=== PATIENT | female | born 1965 | race Caucasian/White ===

== ENCOUNTER 2023-07-05 18:59 | Emergency (ER) | payer MEDICARE, MEDICAID, SELFPAY ==
--- NOTE | 2023-07-05 | ECG_ITS ---
Test Reason : SOB Blood Pressure : / mmHG Vent. Rate : 070 BPM Atrial Rate : 070 BPM P-R Int : 136 ms QRS Dur : 086 ms QT Int : 470 ms P-R-T Axes : -12 087 083 degrees QTc Int : 507 ms Normal sinus rhythm Prolonged QT Abnormal ECG No previous ECGs available Referred By: Carlitos Willingham Electronically Signed By:JAIME CHANDLER
--- NOTE | ~2023-07-05 | XR_ITS ---
EXAMINATION: XR CHEST CLINICAL INFORMATION: Shortness of breath COMPARISON: None available. TECHNIQUE: 2 views of the chest were obtained. FINDINGS: There is mild cardiomegaly. Mild upper zone distribution but no evidence of gross pulmonary edema. No pleural effusions are seen. A tunneled right IJ hemodialysis catheter is present with its tip in the right atrium. Stents are present in the left upper arm with surgical clips near the antecubital fossa. Calcifications seen in the region of the brachial artery. XR/XR chest 2V IMPRESSION: Cardiomegaly with mild upper zone distribution but no evidence of gross pulmonary edema.
[2023-07-05 19:14] VITALS: BP 80/60; PULSE 82; O2SAT 97
--- NOTE | 2023-07-05 19:16 | ED.GENADULT ---
HPI - General Adult General Chief complaint: Dyspnea Stated complaint: from [place] HTN, dizzy, lethargic Time Seen by Provider: 07/05/23 19:15 History of Present Illness HPI narrative: 57 y/o F patient; PMH ESRD on dialysis s/p bilateral kidney removal, cardiac arrest 2/2 to hypoxia believed to be related to noncompliance with CPAP (underlying MEETA), HTN; presents from acute rehab with report of low blood pressure. The patient states she is currently attempting to get on the transplant list for kidney. She was on 7 blood pressure medications in Mar 2023. Following her kidney removal surgery, she is currently on 4 blood pressure medications. Today she had a normal morning other than some mild upper congestion for which she took Mucinex. This afternoon before her PT session her blood pressure was in 120mmHg systolic. After she took her blood pressure medications she developed lightheadedness and dizziness. She had her blood pressure taken and was found to be hypotensive. She denies any falls or trauma. She denies: shortness of breath (contrary to triage note), chest pain, nausea/vomiting, diarrhea, syncope. Incidentally she also noticed a rash to her right lower abdomen a few days ago which is intermittently causing her discomfort. Related Data Previous Rx's Medication Instructions Recorded acyclovir 200 mg capsule 200 mg PO BID 5 days #10 caps 07/05/23 acyclovir 400 mg tablet 400 mg PO DAILY #2 tabs 07/05/23 Allergies Allergy/AdvReac Type Severity Reaction Status Date / Time No Known Allergies Allergy Verified 07/05/23 19:24 Review of Systems Review of Systems: Yes all other systems are reviewed and are negative [facility] Past Medical History Attestation statement: The following information was validated with the patient. Source: old records reviewed Social History Social History Smoked in Last 30 Days: No Advance Directives: No Advance Directives Information Provided: No Patient : No Physical Exam ED Vital Signs: Vital Signs - 24 hr 07/05/23 19:17 07/05/23 19:50 Temperature 97.8 F 97.8 F Pulse Rate 78 78 Respiratory Rate 16 16 Blood Pressure 90/56 L 90/56 L Pulse Oximetry 94 94 Oxygen Delivery Method Room Air Room Air BMI result Body Mass Index 19.4 Patient is afebrile with low normal blood pressure (MAP 67). Const General: cooperative [facility] Head: Yes atraumatic Eyes General: appearance normal, both eyes and all related structures Neck Neck: Yes normal visual inspection, Yes full ROM, Yes supple and No tender Chest Chest palpation & inspection: normal inspection of the chest and normal palpation of entire chest wall Resp Effort & Inspection: normal respiratory effort, able to speak in complete sentences, no cough and no respiratory distress Auscultation: clear to auscultation bilaterally Cardio Rate: regular rate Rhythm: regular rhythm Peripheral pulses: Peripheral pulses 2+ throughout GI Other: Right lower abdominal vesicular rash consistent with likely varicella zoster Inspection: No Abdominal wall edema and No distended Palpation (GI): Soft to palpation, not firm, nontender, no guarding and not rigid Auscultation: normal bowel sounds Skin Other: Course Course Course Narrative: Patient is afebrile with low normal BP (MAP 67). Suspect likely iatrogenic 2/2 to hypertensive medications but will assess for signs of infection. Reevaluation(s) Reevaluation #1: Labs reviewed: No leukocytosis Baseline anemia (Hgb 8.1) Baseline thrombocytopenia (118). Hyperphosphatemia 5.7 Troponin 18.1 will plan to repeat. LA 1. COVID/Flu/RSV negative. Will treat with dialysis doses Acyclovir with loading 400mg PO now. Plan: Transition to next physician pending repeat troponin and disposition Condition: Stable Medications Administered Discontinued Medications Generic Name Dose Route Start Last Admin Trade Name Freq PRN Reason Stop Dose Admin Acyclovir 400 mg 07/05/23 20:33 07/05/23 20:58 Acyclovir 200 Mg Capsule PO 07/05/23 20:34 400 mg ONCE ONE Administration Medical Decision Making Lab Data 07/05/23 19:56 07/05/23 19:56 Labs: Lab Results 07/05/23 07/05/23 07/05/23 Range/Units 19:56 19:59 20:29 WBC 6.2 (4.8-10.8) X10*3/uL RBC 2.62 L (4.20-5.50) X10*6/uL Hgb 8.1 L (12.0-16.0) g/dl Hct 24.6 L (37.0-47.0) % MCV 93.9 (80.0-98.0) fL MCH 30.9 (27.0-33.0) pg MCHC 32.9 (31.0-35.0) g/dl RDW 14.3 (11.0-16.0) % Plt Count 118 L (160-400) X10*3/uL MPV 10.4 (9.4-12.3) fL Immature Gran % (Auto) 0.6 H (0.0-0.4) % Neut % (Auto) 67.7 (45-73) % Lymph % (Auto) 20.0 (20-40) % [place] % (Auto) 8.3 (2-11) % Eos % (Auto) 2.8 (0-4) % Baso % (Auto) 0.6 (0-2) % Lymph # (Auto) 1.2 (1.2-4.9) X10*3/uL [place] # (Auto) 0.5 (0.1-1.2) X10*3/uL Eos # (Auto) 0.2 (0.0-0.4) X10*3/uL Baso # (Auto) 0.0 (0.0-0.2) X10*3/uL Abs Immat Gran (auto) 0.04 H (0.00-0.03) X10*3/uL Absolute Neuts (auto) 4.2 (2.0-8.3) x10*3/uL Absolute Nucleated RBC 0.000 (0.0-0.012) X10*3/uL Nucleated RBC % (auto) 0.0 (0.0-0.2) /100WBC VBG pH 7.61 H* (7.32-7.43) VBG pCO2 29 mmHg VBG pO2 70 mmHg VBG HCO3 30 H (22-26) mmol/L VBG O2 Saturation 94.0 % VBG Base Excess 9.1 mmol/L Sodium 138 (135-145) mmol/L Potassium 4.7 (3.3-5.1) mmol/L Chloride 99 (96-108) mmol/L Carbon Dioxide 25 (22-29) mmol/L Anion Gap 19 (12-20) BUN 33 H (9-16) mg/dL Creatinine 5.16 H* (0.5-1.4) mg/dL Estim Creat Clear Calc 9.4 Estimated GFR 9 Random Glucose 106 (60-115) mg/dL Lactic Acid 1.0 (0.5-2.0) mmol/L Calcium 9.8 D (8.4-10.2) mg/dL Phosphorus 5.7 H (2.7-4.5) mg/dL Magnesium 2.1 (1.6-2.6) mg/dL Total Bilirubin 0.5 (0.0-1.0) mg/dL AST 17 (5-31) U/L ALT 14 (0-31) U/L Alkaline Phosphatase 78 (39-117) U/L Troponin I High Sens 18.1 H (<3.5-17.0) ng/L Total Protein 6.4 L (6.5-8.0) g/dL Albumin 3.5 (3.5-5.0) g/dL Lipase 34 (8-78) U/L Influenza Type A (PCR) NEGATIVE (Negative) Influenza Type B (PCR) NEGATIVE (Negative) RSV RNA Qual (PCR) NEGATIVE (Negative) SARS-CoV-2 RNA (RT-PCR) NEGATIVE (Negative) Discharge Plan Discharge Clinical Impression: Shingles, Blood pressure abnormally low Patient Disposition: Still a Patient Instructions: Shingles (ED) Additional Instructions: As we discussed, you were seen today for a rash and lower than normal blood pressure. Your exam and labs did not show an obvious infection, it is possible your lower than normal blood pressure is due to your blood pressure medications. Recommend you discuss a dose adjustment with your PCP. It is likely that you have a shingles rash to your abdomen. We started you on Acyclovir to help treat this rash. Take 200mg twice a day for 5 days. Then take 400mg immediately after dialysis sessions (Tuesday and Tuesday) - so those days take 3 pills total in the day. This prescription was sent to the [facility] at [address] [place] [address]. Return to the ED for: Any fever Passing out Chest pain Difficulty breathing Prescriptions: New acyclovir 200 mg capsule 200 mg PO BID 5 Days Qty: 10 0RF acyclovir 400 mg tablet 400 mg PO DAILY Qty: 2 0RF
[2023-07-05 19:17] VITALS: BP 90/56; PULSE 78; RESP 16; TEMP 36.6; O2SAT 94; BMI 19.4
[2023-07-05 19:50] VITALS: BP 90/56; PULSE 78; RESP 16; TEMP 36.6; O2SAT 94
--- NOTE | 2023-07-05 19:52 | PC.NURSE ---
Pt ca&ox4, no signs of acute distress. Pt reports sob, dizziness, and generally not feeling well and a low b/p of 80/60 with an onset of 12pm. Pt denies n/v, chest pain and pain at this time. Pt sat 94 on room air. Pt b/p 90/56 reported to T[facility]. Line attempted, chargeback analyst to try for a line. EKG completed. Pt placed on bedside monitor. Plan of care ongoing.
[2023-07-05 20:01] LABS: MANUAL DIFF FLAG NO
[2023-07-05 20:06] LABS: Basophils Percent Auto 0.6 % (0-2); Eosinophils Absolute Auto 0.2 X10*3/uL (0.0-0.4); Eosinophils Percent Auto 2.8 % (0-4); Hematocrit 24.6 % (37.0-47.0); Hemoglobin 8.1 g/dl (12.0-16.0); Imm Gran Abs Auto 0.04 X10*3/uL (0.00-0.03); Imm Gran Pct Auto 0.6 % (0.0-0.4); Lymphocytes Absolute Auto 1.2 X10*3/uL (1.2-4.9); Mean Corpuscular HGB Conc 32.9 g/dl (31.0-35.0); Mean Corpuscular Hemoglobin 30.9 pg (27.0-33.0); Mean Corpuscular Volume 93.9 fL (80.0-98.0); Mean Platelet Volume 10.4 fL (9.4-12.3); Monocytes Absolute Auto 0.5 X10*3/uL (0.1-1.2); Monocytes Percent Auto 8.3 % (2-11); Neutrophils Absolute Auto 4.2 x10*3/uL (2.0-8.3); Neutrophils Percent Auto 67.7 % (45-73); Platelet Count 118 X10*3/uL (160-400); Red Blood Count 2.62 X10*6/uL (4.20-5.50); Red Cell Distribution Width 14.3 % (11.0-16.0); White Blood Count 6.2 X10*3/uL (4.8-10.8)
[2023-07-05 20:12] LABS: VBG Base Excess 9.1 mmol/L; VBG HCO3 30 mmol/L (22-26); VBG pCO2 29 mmHg; VBG pH 7.61 (7.32-7.43); VBG pO2 70 mmHg
[2023-07-05 20:17] LABS: Venous Blood Gas Refer to POC result
[2023-07-05 20:21] LABS: Alanine Aminotransferase 14 U/L (0-31); Albumin Level 3.5 g/dL (3.5-5.0); Alkaline Phosphatase 78 U/L (39-117); Anion Gap 19 (12-20); Aspartate Amino Transferase 17 U/L (5-31); Bilirubin Total 0.5 mg/dL (0.0-1.0); Blood Urea Nitrogen 33 mg/dL (9-16); Calcium 9.8 mg/dL (8.4-10.2); Carbon Dioxide 25 mmol/L (22-29); Chloride 99 mmol/L (96-108); Creatinine Clr Calc Pharmacy 9.4; Estimated Glomerular Filt Rate 9; Glucose Random 106 mg/dL (60-115); Lipase 34 U/L (8-78); Magnesium 2.1 mg/dL (1.6-2.6); Phosphorus 5.7 mg/dL (2.7-4.5); Potassium 4.7 mmol/L (3.3-5.1); Sodium 138 mmol/L (135-145); Total Protein 6.4 g/dL (6.5-8.0)
[2023-07-05 20:25] LABS: Troponin-I High Sensitivity 18.1 ng/L (<3.5-17.0)
[2023-07-05 20:44] LABS: Influenza A PCR NEGATIVE (Negative); Influenza B PCR NEGATIVE (Negative); Resp Syncy Virus RNA Qual PCR NEGATIVE (Negative); SARS COV2 PCR INHOUSE NEGATIVE (Negative)
[2023-07-05] MEDS: Acyclovir 200 MG CAPSULE 400 MG PO (20:58)
--- NOTE | 2023-07-05 20:59 | PC.NURSE ---
Pt ca&ox4, no signs of distress. Pt resting in bed quietly Pt medicated per mar. Plan of care ongoing.
--- NOTE | 2023-07-05 21:50 | PC.NURSE ---
Pt sat @ 86, placed on 2L ns. plan of care ongoing.
[2023-07-05 22:00] VITALS: BP 128/72; PULSE 65; RESP 13; TEMP 36.9; O2SAT 94
[2023-07-05 23:49] VITALS: BP 160/88; PULSE 68; RESP 18; TEMP 36.7; O2SAT 90
[2023-07-06 00:14] LABS: Troponin-I High Sensitivity 20.6 ng/L (<3.5-17.0)
[2023-07-06 00:25] VITALS: BP 154/89; PULSE 75; RESP 12; O2SAT 94
--- NOTE | 2023-07-06 01:09 | PC.NURSE ---
This RN called Abhay Abarca and report given to GERMANIA Marshall. Joanna requesting paper scrips for meds.
[2023-07-06 01:12] VITALS: BP 154/89; PULSE 75; RESP 12; TEMP 37; O2SAT 94
== END 2023-07-06 02:25 | disposition home or self-care (01) ==
PROVIDERS: Emergency Medicine; Internal Medicine; Emergency Provider Emergency Medicine Emergency Medical Services; PCP Internal Medicine Nephrology
DX: B02.8 Zoster with other complications (principal); I95.9 Hypotension, unspecified; R06.02 Shortness of breath; R42 Dizziness and giddiness; R94.31 Abnormal electrocardiogram [ECG] [EKG]; Z11.52 Encounter for screening for COVID-19; Z20.822 Contact with and (suspected) exposure to COVID-19; Z79.899 Other long term (current) drug therapy
CPT/HCPCS: 0241U; 36415; 71046; 80053; 82803; 83605; 83690; 83735; 84100; 84484; 85025; 87040; 93005; 99283; 99285

== ENCOUNTER → 2023-07-05 19:15 | Outpatient (BNV) | payer MEDICARE, MEDICAID, SELFPAY | PROVIDERS: Emergency Provider Emergency Medicine Emergency Medical Services; PCP Internal Medicine Nephrology; Visit Provider Internal Medicine | DX: I45.81 Long QT syndrome (principal) | CPT/HCPCS: 93010 ==